=== PATIENT | female | born 1990 | race Caucasian/White ===

== ENCOUNTER 2020-08-23 09:45 | Inpatient (IN) | payer OTHER, SELFPAY ==
[2014-09-14 02:01] VITALS: BMI 23.1
[2020-08-23] VITALS (37 sets, daily range): BP systolic 111–144; BP diastolic 54–87; PULSE 81–123; TEMP 36.2–37.2; O2SAT 85–100; BMI 39.1
[2020-08-23 10:52] LABS: Absolute Lymphocyte Count 1.62 X10^3/uL (0.83-4.51); Absolute Neutrophil Count 6.4 X10^3/uL (2.0-7.7); Basophil# 0.04 X10^3/uL; Basophil% 0.5 % (0-1); Eosinophil# 0.06 X10^3/uL; Eosinophils% 0.7 % (0-5); Hemoglobin 11.9 g/dL (12.0-15.0); Lymphocyte # 1.62 X10^3/ul (4.0); Lymphocyte % 19.1 % (19-41); Mean Corpuscular Hgb 33.1 pg (27.0-32.0); Mean Corpuscular Volume 97.2 fL (81-99); Mean Platelet Vol. 9.7 fl (6.2-12.0); Monocyte# 0.34 X10^3/uL; NRBC Flagged by Analyzer 0 % (0-5); Neutrophil # 6.41 X10^3/uL (2.7-7.7); Neutrophil % 75.3 % (47-70); Platelet Count 271 K/mm3 (150-450); RBC Distribution Width CV 13.2 % (11.6-14.6); RBC Distribution Width SD 46.5 fl (35.1-43.9); White Blood Count 8.5 K/mm3 (4.4-11.0)
[2020-08-23] MEDS: miSOPROStol 25 MCG TABLET PO (11:04)
[2020-08-23] MEDS: Mag Hydrox/Al Hydrox/Simeth 30 ML UDC PO ×3 (11:04→20:15)
[2020-08-23 11:05] LABS: Uric Acid 5.7 mg/dL (2.6-6.0)
[2020-08-23 11:06] LABS: Protein, Urine (Random) 15.5 mg/dL (<11.9); Protein:Creat Ratio 1174 mg/g CRE (0-200)
[2020-08-23 11:14] LABS: ALB/GLOB Ratio 0.6 RATIO (0.9-2.4); AST(SGOT) 15 U/L (15-37); Alanine Aminotransfer ALT/SGPT 16 U/L (13-56); Albumin, Serum 2.7 g/dL (3.2-5.0); Alkaline Phosphatase 167 U/L (45-117); Anion Gap 8 (5-15); BUN 9 mg/dL (7-18); BUN/Creat Ratio 11.4 RATIO (10-20); Calcium,Total 9.6 mg/dL (8.5-10.1); Chloride 108 mmol/L (98-107); Creatinine, Serum 0.79 mg/dL (0.55-1.02); EST Glomerular Filtration Rate 91 mL/min (>60); Est Glom Filt Rate - Afr Amer 110 mL/min (>60); Estimated Creatinine Clearance 109.81 ml/min; Globulin 4.2 g/dL (2.2-4.2); Glucose 107 mg/dL (74-106); Potassium 3.8 mmol/L (3.5-5.1); Protein, Total 6.9 g/dL (6.4-8.2); Sodium Level 138 mmol/L (136-145)
--- NOTE | 2020-08-23 12:38 | PCM.HP.OB ---
- Problem List (1) Obesity (BMI 30-39.9) Status: Acute (2) Excessive weight gain affecting Status: Acute (3) Pre-eclampsia Status: Acute (4) Nulliparity Status: Acute History Date of Admission: 08/23/20 Final BISHNU: 08/29/20 Final BISHNU Source: US <20 weeks Gestational age: 39 Weeks and 1 Days History of this : This is a 30 year-old, G [1], P [0], at 39 weeks 1 day gestational age by ultrasound. Patient presented to office today with complaint of mildly elevated blood pressures in the 130s over 80s last evening. Had a headache yesterday but improved today. Upon arrival to office for visit blood pressure found to be 140s over 90s and decision made for induction of labor due to gestational hypertension. course complicated by obesity, excessive weight gain 51 pounds total with normal growth ultrasound in the 36th percentile and ELMER 9 normal. Allergies No Known Allergies Allergy (Verified 09/14/14 02:03) Home Medications: Home Medications Famotidine [Pepcid] 20 mg PO DAILY 08/23/20 Vits [Prenatabs FA] 1 tab PO DAILY 08/23/20 Smoking Status: Former smoker Alcohol: None Number of Fetus(es): 1 NST - FHR Rate Baby A Baseline: 135 Variability:: Moderate Accelerations:: 15 x 15 Decelerations:: Variable FHR Category:: Category II Uterine Activity:: Irregular History Past Pregnancies: Past Pregnancies Delivery Date Name GA/ Weeks Outcome Route Wt Sex Labor Length Anesthesia Delivery Location Provider FOB Labs: Mom's Microbiology 08/23/20 10:30 Mucosa - Nasopharyngeal SARS-CoV-2 Antigen (Rapid) - Final Mom's Problem List Problem Status Onset Code Obesity (BMI 30-39.9) Acute E66.9 Excessive weight gain affecting Acute O26.00 Pre-eclampsia Acute O14.90 Nulliparity Acute Mom's Labs & Results 08/23/20 08/23/20 08/23/20 10:00 10:30 10:30 WBC 8.5 RBC 3.60 L Hgb 11.9 L Hct 35.0 L MCV 97.2 MCH 33.1 H MCHC 34.0 RDW Std Deviation 46.5 H RDW Coeff of Jannet 13.2 Plt Count 271 MPV 9.7 Immature Gran % (Auto) 0.400 Neut % (Auto) 75.3 H Lymph % (Auto) 19.1 Sunflower % (Auto) 4.0 Eos % (Auto) 0.7 Baso % (Auto) 0.5 Absolute Neuts (auto) 6.4 Absolute Lymphs (auto) 1.62 Nucleated RBC % 0 Sodium Potassium Chloride Carbon Dioxide Anion Gap BUN Creatinine Estim Creat Clear Calc Est GFR (MDRD) Af Amer Est GFR (MDRD) Non-Af BUN/Creatinine Ratio Glucose Uric Acid Calcium Total Bilirubin AST ALT Alkaline Phosphatase Total Protein Albumin Globulin Albumin/Globulin Ratio U Random Total Protein 15.5 H Urine Creatinine 13.20 Protein/Creatinin Ratio 1174 H Blood Type AB POSITIVE Antibody Screen NEGATIVE 08/23/20 08/23/20 10:30 10:30 WBC RBC Hgb Hct MCV MCH MCHC RDW Std Deviation RDW Coeff of Jannet Plt Count MPV Immature Gran % (Auto) Neut % (Auto) Lymph % (Auto) Sunflower % (Auto) Eos % (Auto) Baso % (Auto) Absolute Neuts (auto) Absolute Lymphs (auto) Nucleated RBC % Sodium 138 Potassium 3.8 Chloride 108 H Carbon Dioxide 22.0 Anion Gap 8 BUN 9 Creatinine Cancelled 0.79 Estim Creat Clear Calc 109.81 Est GFR (MDRD) Af Amer Cancelled 110 Est GFR (MDRD) Non-Af Cancelled 91 BUN/Creatinine Ratio 11.4 Glucose 107 H Uric Acid 5.7 Calcium 9.6 Total Bilirubin 0.20 AST Cancelled 15 ALT Cancelled 16 Alkaline Phosphatase 167 H Total Protein 6.9 Albumin 2.7 L Globulin 4.2 Albumin/Globulin Ratio 0.6 L U Random Total Protein Urine Creatinine Protein/Creatinin Ratio Blood Type Antibody Screen Course Did the patient receive Yes care? Labs Blood Type: AB RH: POSITIVE RPR/VDRL/Syphilis Nonreactive Rubella status Immune HbSAg Negative Date Done: 01/24/20 Chlamydia Negative Gonorrhea Negative HIV/AIDS Non-Reactive Group B Strep: Negative Current Obstetrical History Gestational Diabetes No Incompetent Cervix No Infertility No IUGR No Macrosomia No Hypertension/Pre-eclampsia No Placenta Previa/Abruption No PTL/PROM No Uterine anomaly No Oligohydramnios No Polyhydramnios No Multiple gestation No Past Medical History Asthma No Diabetes No Hypertension No Heart disease No Mitral valve prolapse No Neurologic/Seizure disorder/ No Migraines Kidney disease No Liver disease No Varicosities No Clotting disorders/Hx of DVT No Thyroid Dysfunction No Other medical diseases No Psychiatric disorders No Major trauma No Abnormal PAP smear No Sleep apnea No Mammogram in the last 2 years No Social History Marital Status: Alleged father olivia verdin Hx Smoking No Smoking Status Former smoker Expected Infant Delivery Method: Spontaneous Vaginal Review of Systems Constitutional: Denies: Chills, Fever, Weight Change HEENT: Denies: Head Aches, Sinus Congestion, Sinus Drainage Cardiovascular: Denies: Chest Pain, Palpitations Respiratory: Denies: Cough, Shortness of breath at rest, Sputum production Gastrointestinal: Denies: Abdominal Pain, Nausea, Vomiting Genitourinary: Denies: Dysuria Musculoskeletal: Denies: Joint Pain, Joint Tenderness Skin: Denies: Rash, Wounds Neurological: Denies: Numbness, Tingling, Focal weakness Psychiatric: Denies: Anxiety, Depression, Homicidal Ideations, Suicidal Ideations Hematologic/ Lymphatic: Denies: Easy Bruising, Easy Bleeding Physical Exam Vitals: Vital Signs Temp Pulse BP Pulse Ox 98.6 F 96 139/87 H 99 08/23/20 10:20 08/23/20 11:38 08/23/20 11:38 08/23/20 10:20 General: Alert, Oriented x3, Cooperative HEENT: Atraumatic, Normocephalic Cardiovascular: Regular rate, Regular Rhythm Lungs: Clear to auscultation, Normal air movement, No rhonchi, No wheeze Abdomen: Bowel Sounds Present, Gravid - Right upper quadrant abdominal tenderness Neurological: Deep Tendon Reflexes 2+/4 and Symmetrical. Negative for: Clonus TUTORING CLINICIAN: Normal external genitalia Estimated gestational size: Appropriate for gestational size Presentation: Cephalic Cervix Dilation (cm): 2 - Smith catheter placed with stylette, no complications. SROM for clear fluid Station: -1 Effacement (%): 70 Assessment/Plan All Active Problems Obesity (BMI 30-39.9) (Acute) Excessive weight gain affecting (Acute) Pre-eclampsia (Acute) Nulliparity (Acute) This is a 30 year-old, G [1], P [0], at 39 weeks gestational age. Assessment: Induction of labor due to preeclampsia Category 2 heart tracing Obesity in with excessive weight gain Plan: 1. Admit to labor and delivery. 2. Routine admission labs, CMP, uric acid, urine PC ratio. 3. Urine PC ratio elevated to 1174, BP remains mild range 4. Planning epidural for pain management 5. P.o. Cytotec 25 mcg every 4 hours with Smith bulb for cervical ripening. We will then start Pitocin if needed. 6. Continuous electronic monitoring 7. Dr. Maurer collaborative physician updated on patient's status.
[2020-08-23] MEDS: 0.9% Normal Saline Single 100 ML IV.SOLN. INTRA-UTER (12:48)
[2020-08-23] MEDS: Lactated Ringers 1,000 ML 50 ML IV (15:56)
[2020-08-23] MEDS: 0.9% Saline Lock 10 ML Syringe IV (16:26)
[2020-08-23] MEDS: Oxytocin 30 units/NS 500 ml 30 UNITS/500 ML IV.SOLN IV (16:29)
[2020-08-23] MEDS: Lactated Ringers 500 ML 999 ML IV ×2 (17:35→22:08)
--- NOTE | 2020-08-23 18:17 | PN.OBGYN_ITS ---
Patient Problems: Active and Suspected Problems Obesity (BMI 30-39.9) (Acute) Excessive weight gain affecting (Acute) Pre-eclampsia (Acute) Nulliparity (Acute) Subjective: Resting in bed, coping with contractions. at bedside. Rating pain 7/10 and requesting epidural. Smith bulb fell out around 1430. Objective: FHT 135, moderate variability, accels, no decels, category 1 TOCO: every 2-3 minutes, mild Cervix 5cm/75%/-1 Pitocin at 4 mu's - Physical Exam Vitals/I&O's: Vital Signs Temp Pulse BP Pulse Ox 98.3 F 96 125/65 H 100 08/23/20 17:37 08/23/20 17:37 08/23/20 17:37 08/23/20 17:36 Weight: 265 lb Body Mass Index (BMI) 39.1 Intake and Output for Last 24 Hours 08/21/20 08/22/20 08/23/20 23:59 23:59 23:59 Intake Total 583.53 / 583.53 Balance 583.53 / 583.53 Microbiology Past 72 Hours 08/23/20 10:30 Mucosa - Nasopharyngeal SARS-CoV-2 Antigen (Rapid) - Final Laboratory Results 08/23/20 10:00: U Random Total Protein 15.5 H, Urine Creatinine 13.20, Protein/Creatinin Ratio 1174 H 08/23/20 10:30: WBC 8.5, RBC 3.60 L, Hgb 11.9 L, Hct 35.0 L, MCV 97.2, MCH 33.1 H, MCHC 34.0, RDW Std Deviation 46.5 H, RDW Coeff of Jannet 13.2, Plt Count 271, MPV 9.7, Immature Gran % (Auto) 0.400, Neut % (Auto) 75.3 H, Lymph % (Auto) 19.1, [place] % (Auto) 4.0, Eos % (Auto) 0.7, Baso % (Auto) 0.5, Absolute Neuts (auto) 6.4, Absolute Lymphs (auto) 1.62, Nucleated RBC % 0 08/23/20 10:30: Blood Type AB POSITIVE, Antibody Screen NEGATIVE 08/23/20 10:30: Creatinine Cancelled, Est GFR (MDRD) Af Amer Cancelled, Est GFR (MDRD) Non-Af Cancelled, Uric Acid 5.7, AST Cancelled, ALT Cancelled 08/23/20 10:30: Sodium 138, Potassium 3.8, Chloride 108 H, Carbon Dioxide 22.0, Anion Gap 8, BUN 9, Creatinine 0.79, Estim Creat Clear Calc 109.81, Est GFR (MDRD) Af Amer 110, Est GFR (MDRD) Non-Af 91, BUN/Creatinine Ratio 11.4, Glucose 107 H, Calcium 9.6, Total Bilirubin 0.20, AST 15, ALT 16, Alkaline Phosphatase 167 H, Total Protein 6.9, Albumin 2.7 L, Globulin 4.2, Albumin/Globulin Ratio 0.6 L Current Medications Acetaminophen (Acetaminophen 500 Mg Tablet) 500 - 1,000 mg PO Q6H PRN PRN PRN Reason: Pain Score 1-3 Al Hydroxide/Mg Hydroxide (Mag Hydrox/Al Hydrox/Simeth 30 Ml Udc) 15 - 30 ml PO Q4H PRN PRN PRN Reason: INDIGESTION Last Admin: 08/23/20 15:56 Dose: 30 ml Documented by: Citric Acid/Sodium Citrate (Sodium Citrate/Citric Acid 30 Ml Udc) 30 ml PO X1 PRN PRN Reason: Section Fentanyl Citrate (Fentanyl 100 Mcg/2 Ml Ampul) 25 - 50 mcg IV Q2H PRN PRN PRN Reason: Pain Score 4-10 Lactated Ringer's () 500 mls @ 999 mls/hr IV .Q31M PRN PRN Reason: Epidural Last Infusion: 08/23/20 18:10 Dose: Infused Documented by: Lactated Ringer's () 500 mls @ 999 mls/hr IV .Q31M PRN PRN Reason: Corrective Measures Lactated Ringer's () 1,000 mls @ 50 mls/hr IV .Q20H JUAN Last Infusion: 08/23/20 18:05 Dose: 200 mls/hr Documented by: Oxytocin/Sodium Chloride () 30 units in 500 mls @ 2 mls/hr IV .Q250H JUAN Last Infusion: 08/23/20 17:00 Dose: 4 mls/hr Documented by: Ondansetron HCl (Ondansetron 4 Mg/2 Ml Vial) 4 mg IV Q4H PRN PRN PRN Reason: NAUSEA Prochlorperazine Edisylate (Prochlorperazine 10 Mg/2 Ml Vial) 10 mg IV Q6H PRN PRN PRN Reason: NAUSEA Sodium Chloride (0.9% Saline Lock 10 Ml Syringe) 10 - 40 ml IV X1 PRN PRN Reason: SALINE FLUSH Last Admin: 08/23/20 16:26 Dose: 10 ml Documented by: Medical Necessity - Tobacco Use Smoking Status: Former smoker Assessment/Plan All Active Problems Obesity (BMI 30-39.9) (Acute) Excessive weight gain affecting (Acute) Pre-eclampsia (Acute) Nulliparity (Acute) A:Induction of Labor, progressing Category 1 FHT P: 1.BP remain mild range 2.Epidural for pain management 3.Continuous EFM, may place FSE and IUPC once epidural placed if unable to monitor FHR and contractions. 4. notified of patient status
[2020-08-23] MEDS: fentaNYL-bupivacaine (epidural) 100 ML BAG EPIDURAL ×2 (19:15→23:45)
[2020-08-23] MEDS: Lactated Ringers 1,000 ML 200 ML IV (22:08)
[2020-08-24] VITALS (19 sets, daily range): BP systolic 116–144; BP diastolic 62–87; PULSE 85–114; RESP 16–18; TEMP 35.9–37.4; O2SAT 92–99
[2020-08-24] MEDS: Mag Hydrox/Al Hydrox/Simeth 30 ML UDC PO (00:02)
[2020-08-24] MEDS: Amnioinfusion- 0.9% NS 1,000 ML IV.SOLN. 300 ML INTRA-UTER (01:00)
[2020-08-24] MEDS: Oxytocin 30 units/NS 500 ml 30 UNITS/500 ML IV.SOLN 334 UNITS IV (03:24)
--- NOTE | 2020-08-24 04:19 | PCM.OPRPT ---
Problem List (1) Obesity (BMI 30-39.9) Status: Acute (2) Excessive weight gain affecting Status: Acute (3) Pre-eclampsia Status: Acute (4) Nulliparity Status: Acute (5) Vaginal delivery Status: Acute (6) First degree perineal laceration Status: Acute (7) Perineal laceration of labia Status: Acute Vaginal Delivery Maternal Presentation: Medically Indicated Induction - Preeclampsia Method of Induction: Pitocin, Smith Bulb, Cytotec Amniotic Membrane Rupture Type: Spontaneous Amniotic Fluid Description: Clear Final BISHNU: 08/29/20 Final BISHNU Source: US <20 weeks Gestational age: 39 Weeks and 2 Days Date of Procedure: 08/24/20 Pre-Operative Diagnosis: Induction of Labor Post-Operative Diagnosis: Vaginal Delivery Surgery/ Procedure Performed: Spontaneous Vaginal Delivery Type of Anesthesia: Epidural Description of Procedure: Progressed to complete and epidural effective. of viable male infant at 0322 over first degree perineal laceration. APGARS 8,9. head delivered with body forth coming. Placed on Maternal abdomen with strong cry. Mouth and nares suctioned for secretions. Pitocin started for active 3rd stage management. Placenta delivered with maternal effort, intact, 3 vessel cord. Perineum inspected and revealed first degree perineal laceration repaired with 3.0 vicryl rapide and bilateal labial lacerations repaired with 3.0 vicryl rapide under epidural analgesia. Fundus firm, vaginal sweep completed, EBL 400ml. Sponge and instrument count correct and completed by me. initiated. Mom and baby stable. Family bonding well. Presentation: Vertex Placental Delivery Description: Spontaneous Placenta Disposition: [facility] Cord Vessel Description: 3 Vessels Cord Entanglement: None Estimated Blood Loss: 400 ml A gender: Male (1 minute): 8 (5 minute): 9 Episiotomy Description: None Laceration: Perineal Extension/lac, 1st degree Medications given after delivery: IV Pitocin Complications: None
[2020-08-24] MEDS: 0.9% Saline Lock 10 ML Syringe IV (06:08)
[2020-08-24] MEDS: Ibuprofen 600 MG Tablet PO ×2 (13:58→20:08)
[2020-08-24] MEDS: Dibucaine 30 GM Tube 1 APPLIC TOPICAL (20:08)
--- NOTE | 2020-08-24 21:47 | NURSING ---
Circumcision care education provided by this RN. Discussed signs and symptoms to look for, circumcision care, and showed pt. page about circ in [employer] book. Denies questions or concerns at this time. This RN encourage parents to call out for a nurse for first diaper change if they want assistance with the first one.
[2020-08-25 00:45] VITALS: BP 125/75; PULSE 85; RESP 16; TEMP 37.3
[2020-08-25 04:50] VITALS: BP 118/77; PULSE 76; RESP 16; TEMP 36.4
[2020-08-25] MEDS: Ibuprofen 600 MG Tablet PO (05:02)
[2020-08-25 06:05] LABS: ALB/GLOB Ratio 0.6 RATIO (0.9-2.4); AST(SGOT) 17 U/L (15-37); Alanine Aminotransfer ALT/SGPT 15 U/L (13-56); Albumin, Serum 2.4 g/dL (3.2-5.0); Alkaline Phosphatase 130 U/L (45-117); Anion Gap 6 (5-15); BUN 13 mg/dL (7-18); Calcium,Total 7.9 mg/dL (8.5-10.1); Chloride 111 mmol/L (98-107); Creatinine, Serum 0.68 mg/dL (0.55-1.02); EST Glomerular Filtration Rate 108 mL/min (>60); Est Glom Filt Rate - Afr Amer 131 mL/min (>60); Estimated Creatinine Clearance 127.57 ml/min; Globulin 3.8 g/dL (2.2-4.2); Glucose 73 mg/dL (74-106); Protein, Total 6.2 g/dL (6.4-8.2); Sodium Level 139 mmol/L (136-145)
--- NOTE | 2020-08-25 09:16 | PCM.PN.OB ---
Patient Problems: Active and Suspected Problems Obesity (BMI 30-39.9) (Acute) Excessive weight gain affecting (Acute) Pre-eclampsia (Acute) Nulliparity (Acute) Vaginal delivery (Acute) First degree perineal laceration (Acute) Perineal laceration of labia (Acute) Subjective: pt seen at bedside, doing well. pt reports good pain control. lochia mild. breast feeding well. pt denies CORREIA, Visual changes or RUQ pain. - Physical Exam Vitals/I&O's: Vital Signs Temp Pulse Resp BP Pulse Ox 97.6 F L 76 16 118/77 99 08/25/20 04:50 08/25/20 04:50 08/25/20 04:50 08/25/20 04:50 08/24/20 16:37 Oxygen Delivery Method Room Air Weight: 120.202 kg Body Mass Index (BMI) 39.1 Intake and Output for Last 24 Hours 08/23/20 08/24/20 08/25/20 23:59 23:59 23:59 Intake Total 1933.03 / 1933.03 2535.0 / 2535.0 Output Total 800 / 800 Balance 1933.03 / 1933.03 1735.0 / 1735.0 General: Alert, Oriented x3 Abdomen: Soft, Non Tender, Gravid, - - fundus firm Extremities: No Calf Tenderness Microbiology Past 72 Hours 08/23/20 10:30 Mucosa - Nasopharyngeal SARS-CoV-2 Antigen (Rapid) - Final Laboratory Results 08/25/20 04:55: Sodium 139, Potassium 4.0, Chloride 111 H, Carbon Dioxide 22.0, Anion Gap 6, BUN 13, Creatinine 0.68, Estim Creat Clear Calc 127.57, Est GFR (MDRD) Af Amer 131, Est GFR (MDRD) Non-Af 108, BUN/Creatinine Ratio 19.0, Glucose 73 L, Calcium 7.9 L, Total Bilirubin 0.20, AST 17, ALT 15, Alkaline Phosphatase 130 H, Total Protein 6.2 L, Albumin 2.4 L, Globulin 3.8, Albumin/Globulin Ratio 0.6 L Current Medications Acetaminophen (Acetaminophen 500 Mg Tablet) 1,000 mg PO Q8H PRN PRN PRN Reason: Pain Score 1-3 Bisacodyl (Bisacodyl 10 Mg Suppository) 10 mg RC UD PRN PRN Reason: If no BM Dibucaine (Dibucaine 30 Gm Tube) 1 applic TOPICAL TID PRN PRN; Protocol PRN Reason: Discomfort Last Admin: 08/24/20 20:08 Dose: 1 applicatio Documented by: Hydrocortisone (Hydrocortisone 2.5% Crm) 1 applic TOPICAL TID PRN PRN; Protocol PRN Reason: Discomfort Ibuprofen (Ibuprofen 600 Mg Tablet) 600 mg PO Q6H PRN PRN PRN Reason: Pain Score 1-3 Last Admin: 08/25/20 05:02 Dose: 600 mg Documented by: Methylergonovine Maleate (Methylergonovine 0.2 Mg/Ml Ampul) 0.2 mg IM X1 PRN PRN Reason: Excess bleeding/uterine atony Ondansetron HCl (Ondansetron 4 Mg/2 Ml Vial) 4 mg IV Q4H PRN PRN PRN Reason: Nausea Senna/Docusate Sodium (Senna/Docusate Sodium 1 Tablet) 1 - 2 tablet PO DAILY PRN PRN PRN Reason: Constipation Simethicone (Simethicone 80 Mg Tablet) 80 mg PO PCHS PRN PRN Reason: Indigestion/Stomach pain Last Admin: 08/24/20 20:07 Dose: 80 mg Documented by: Sodium Chloride (0.9% Saline Lock 10 Ml Syringe) 5 - 15 ml IV UD PRN PRN Reason: SALINE FLUSH Last Admin: 08/24/20 06:08 Dose: 10 ml Documented by: Medical Necessity - Tobacco Use Smoking Status: Former smoker Assessment/Plan All Active Problems Obesity (BMI 30-39.9) (Acute) Excessive weight gain affecting (Acute) Pre-eclampsia (Acute) Nulliparity (Acute) Vaginal delivery (Acute) First degree perineal laceration (Acute) Perineal laceration of labia (Acute) PPD#1, doing well Preeclampisa - BPs stable asymptomatic pain mgmt dc home
--- NOTE | 2020-08-25 09:19 | DCINST_ITS ---
Discharge Diet: No Restrictions Discharge Activity: Return to Normal Activity, May not drive while taking narcotic pain medications., May Shower May resume sexual activity in: 4-6 weeks Additional Activity Instructions:: Nothing in the vagina for 4-6 weeks. You may return to work/school in 6 weeks. Call your doctor if your incision/area has: Continuous Slow Oozing, Sudden Increased Bleeding, Increased Pain/ Swelling, Increased Redness, Foul Smelling Discharge Additional Instructions: If you experience any of the following, contact your healthcare provider. * Bleeding that soaks a pad every hour for 2 hours * Fever 100.4 or higher * Unrelieved incision or abdominal pain * Swelling, redness, discharge or bleeding from your incision or episiotomy site * Your incision begins to separate * Problems urinating (including inability to urinate or burning while urinating). * Visual changes * Severe headache * Flu-like symptoms * Pain or redness in one of both of your breasts * Pain, warmth, tenderness or swelling in your legs, especially the calf area * Frequent nausea and vomiting * Symptoms of depression or anxiety If you experience any of the following, call 911 or go to the nearest Emergency Room. * Chest pain * Problems breathing * Seizure activity * Partial or complete paralysis of a body part, slurred speech, weakness or drooping of the face, or a sudden inability to walk or hold your balance Allergies/Adverse Reactions: Allergies No Known Allergies Allergy (Verified 09/14/14 02:03) Medications to take at Discharge Vits [Prenatabs FA ] 1 tab PO DAILY 08/23/20 Ibuprofen [Motrin] 600 mg PO Q6H PRN PRN #30 tab 08/25/20 The following prescriptions were given: Ibuprofen [Motrin] 600 mg PO Q6H PRN PRN #30 tab PRN Reason: Pain Score 1-3 Transmission Status: Pending to [id number] Please Follow Up With: Zakiya Schulte CNM When: Call to make an appointment with your doctor in 1-2 weeks then at 6 weeks. . Test Results: Test results from this visit will be discussed in further detail at your follow- up appointment, if applicable.
[2020-08-25 09:20] VITALS: BP 119/77; PULSE 81; RESP 16; TEMP 36.6; O2SAT 98
[2020-08-25 09:27] VITALS: BP 119/77; PULSE 105; RESP 16; TEMP 36.6; O2SAT 98
[2020-08-25] MEDS: Acetaminophen 500 MG Tablet 1000 MG PO (09:39)
== END 2020-08-25 11:55 | disposition home or self-care (01) | DRG 807 ==
PROVIDERS: Admitting Provider Advanced Practice Midwife; Visit Provider Advanced Practice Midwife
DX: O14.94 Unspecified pre-eclampsia, complicating childbirth (principal); O13.4 Gestational [pregnancy-induced] hypertension without significant proteinuria, complicating childbirth; O70.0 First degree perineal laceration during delivery; O99.214 Obesity complicating childbirth; E66.9 Obesity, unspecified; Z20.822 Contact with and (suspected) exposure to COVID-19; Z87.891 Personal history of nicotine dependence; Z3A.39 39 weeks gestation of pregnancy; Z37.0 Single live birth
CPT/HCPCS: 59025; 59050; 80053; 82570; 84156; 84550; 85025; 86850; 86900; 86901; 87426; 99218; J7030; J7120; A4216; G0378

== ENCOUNTER 2020-10-16 15:54 | Outpatient (RCR) | payer OTHER, SELFPAY ==
[2020-08-23 10:18] VITALS: BMI 39.1
== END 2020-12-17 23:59 ==
LOC: IMMUN 15:54
PROVIDERS: PCP Advanced Practice Midwife; Visit Provider Family Medicine
DX: Z23 Encounter for immunization (principal)
CPT/HCPCS: 0001A; 0002A; 91300

== ENCOUNTER 2022-09-23 07:00 | Inpatient (IN) | payer OTHER, SELFPAY ==
[2022-09-23] VITALS (43 sets, daily range): BP systolic 99–137; BP diastolic 51–75; PULSE 76–137; TEMP 36.2–36.9; O2SAT 78–100; BMI 36.9
[2022-09-23] MEDS: Lactated Ringers 1,000 ML 50 ML IV (07:35)
[2022-09-23] MEDS: 0.9% Normal Saline Single 100 ML IV.SOLN. INTRA-UTER (07:52)
[2022-09-23] MEDS: Oxytocin 15 Units/NS 250ml 15 UNITS/250 ML IV.SOLN 2 UNITS IV (07:53)
--- NOTE | 2022-09-23 08:00 | PCM.HP.OB ---
HPI - General General Date of Admission: 09/23/22 HPI Narrative PK VIRK, is a 32 F at 37 weeks who presents for induction of labor due to preeclampsia. PFSH PFSH Medical History (Updated 09/23/22 @ 16:56 by Zakiya Schulte CNM) Pre-eclampsia Home Medications vits,calcium no.78-iron fumarate-folic acid 29 mg-1 mg tablet 1 tab PO DAILY 08/23/20 [History Last Taken 08/22/20 10:00] acetaminophen 325 mg capsule (Tylenol) 650 mg PO Q6H PRN Pain 09/23/22 [History Last Taken Unknown] famotidine 20 mg tablet (Pepcid) 20 mg PO DAILY heartburn 09/23/22 [History Last Taken Unknown] Allergy/AdvReac Type Severity Reaction Status Date / Time No Known Allergies Allergy Verified 09/14/14 02:03 Surgical History (Updated 09/23/22 @ 08:07 by Stephanie Villanueva) History of surgery Social History Smoking Status: Never smoker History Elective abortions Hx Para 1 Spontaneous abortions Hx # Term Pregnancies Ectopic pregnancies Hx # Pregnancies Multiple births # of living children NST FHR Rate Baby A Baseline: 135 Variability:: Moderate Accelerations:: 15 x 15 Decelerations:: None FHR Category:: Category I Uterine Activity:: None ROS Constitutional Constitutional: Reports systems reviewed and no addt'l complaints, except as documented; Denies headache(s) Eyes Eyes: Denies acute decrease in peripheral vision, blurry vision or change in vision ENT HEENT: Reports systems reviewed and no addt'l complaints, except as documented Cardiovascular Cardiovascular: Denies chest pain or dizziness Respiratory/Chest Respiratory/Chest: Denies cough, dyspnea, dyspnea on exertion, shortness of breath at rest or shortness of breath with exertion Gastrointestinal Gastrointestinal: Denies abdominal pain, diarrhea, nausea or vomiting Genitourinary Genitourinary: Denies abdominal discomfort Musculoskeletal Musculoskeletal: Denies limited range of motion Integumentary Integumentary: Reports systems reviewed and no addt'l complaints, except as documented Neurologic Neurologic: Reports systems reviewed and no addt'l complaints, except as documented Psychiatric Psychiatric: Reports systems reviewed and no addt'l complaints, except as documented Endocrine Endocrinology: Reports systems reviewed and no addt'l complaints, except as documented Hematologic/Lymphatic Hematologic/Lymphatic: Reports systems reviewed and no addt'l complaints, except as documented Allergic/Immunologic Allergic/Immunologic: Reports systems reviewed and no addt'l complaints, except as documented Vital Signs Vital Signs Vital Signs: 09/23/22 07:45 09/23/22 07:45 09/23/22 07:45 Temperature Temperature Source Pulse Rate 100 Blood Pressure 137/70 H BP Systolic 137 BP Diastolic 70 Pulse Ox 98 09/23/22 07:45 09/23/22 07:45 Temperature 98.3 F Temperature Source Temporal Pulse Rate Blood Pressure BP Systolic BP Diastolic Pulse Ox Weight Weight: 265 lb Body Mass Index (BMI) 36.9 Physical Exam Const alert and oriented x3 General Appearance: cooperative Orientation / Consciousness: awake, oriented to person, oriented to place and oriented to time Exam Limitations: no limitations HEENT normocephalic Head and Scalp: normal to inspection, normocephalic and atraumatic Face and Sinus: normal facial exam Eyes General Eye: normal appearance of both eyes Neck full ROM Chest Chest: symmetrical chest wall rise Resp normal respiratory effort and normal air movement Auscultation: clear to auscultation bilaterally Cardio regular rate, regular rhythm, S1 normal heart sound, S2 normal heart sound, no murmurs, no rub, no gallops and no clicks GI normal to inspection, nondistended, normoactive bowel sounds and non-tender appearance of the vagina normal Narrative: Smith instilled over stylus into cervical os. Balloon inflated with 30ml NS. Patient tolerated well. Bladder / Kidney Exam: no CVA tenderness Manual OB Exam: estimated gestational size, presentation cephalic, dilated 1.5cm, effaced 50% and station -2 Back/Spine normal ROM Extremity normal to inspection and full ROM Skin no rashes or lesions noted Neuro oriented x3, CN's II-XII intact bilaterally and moves all extremities Sensorium / Orientation: awake, alert and oriented to person Motor Exam: clonus absent Deep Tendon Reflexes: Rt Patellar (L4): 2+ and Lt Patellar (L4): 2+ Labs Labs Labs: Blood Type AB POSITIVE Antibody Screen NEGATIVE Hct 33.4 % (37-47) L Hgb 11.0 g/dL (12.0-15.0) L Syphilis Total Ab Non-reactive Rhogam given: No RPR negative Rubella immune HBsAG negative Hep C negative HIV negative AB positive, antibody negative GC/CT negative GBS negative Assessment & Plan (1) Obesity (BMI 30-39.9): (2) Pre-eclampsia: (3) Encounter for induction of labor: PLAN: Plan 1) Admit to labor and delivery 2) Routine labs 3) Preeclampsia labs 4) Smith with pitocin for IOL 5) Epidural for pain management 6) Continuous EFM 7) collaborative physician and notified of patient status
[2022-09-23 08:15] LABS: Absolute Neutrophil Count 5.3 X10^3/uL (2.0-7.7); Basophil# 0.04 X10^3/uL; Basophil% 0.5 % (0-1); Eosinophil# 0.11 X10^3/uL; Eosinophils% 1.3 % (0-5); Hematocrit 33.4 % (37-47); Lymphocyte % 29.2 % (19-41); Mean Corp Hgb Conc 32.9 g/dL (32-36); Mean Corpuscular Hgb 33.5 pg (27.0-32.0); Mean Corpuscular Volume 101.8 fL (81-99); Mean Platelet Vol. 9.2 fl (6.2-12.0); Monocyte# 0.54 X10^3/uL; Monocyte% 6.3 % (0-10); NRBC Flagged by Analyzer 0 % (0-5); Neutrophil # 5.33 X10^3/uL (2.7-7.7); Neutrophil % 62.1 % (47-70); Platelet Count 317 K/mm3 (150-450); RBC Distribution Width CV 13.6 % (11.6-14.6); RBC Distribution Width SD 50.5 fl (35.1-43.9); Red Blood Count 3.28 M/mm3 (4.2-5.4); White Blood Count 8.6 K/mm3 (4.4-11.0)
[2022-09-23 08:54] LABS: AST(SGOT) 10 U/L (15-37); Alanine Aminotransfer ALT/SGPT 16 U/L (13-56); Creatinine, Serum 0.77 mg/dL (0.55-1.02); EST Glomerular Filtration Rate 93 mL/min (>60); Est Glom Filt Rate - Afr Amer 112 mL/min (>60); Estimated Creatinine Clearance 118.32 ml/min; Uric Acid 5.3 mg/dL (2.6-6.0)
[2022-09-23 08:58] LABS: Protein:Creat Ratio 103 mg/g CRE (0-200)
[2022-09-23 09:18] LABS: Syphilis Antibodies Non-reactive
--- NOTE | 2022-09-23 12:03 | OB.TRI.PN ---
Progress Notes Progress Note: Resting in bed, increased pain with contractions Laboratory Studies: Laboratory Tests 09/23/22 09/23/22 09/23/22 Range/Units 08:15 07:35 07:35 WBC (4.4-11.0) K/mm3 RBC (4.2-5.4) M/mm3 Hgb (12.0-15.0) g/dL Hct (37-47) % MCV (81-99) fL MCH (27.0-32.0) pg MCHC (32-36) g/dL RDW Std Deviation (35.1-43.9) fl RDW Coeff of Jannet (11.6-14.6) % Plt Count (150-450) K/mm3 MPV (6.2-12.0) fl Immature Gran % (Auto) (0.0-0.9) % Neut % (Auto) (47-70) % Lymph % (Auto) (19-41) % [place] % (Auto) (0-10) % Eos % (Auto) (0-5) % Baso % (Auto) (0-1) % Absolute Neuts (auto) (2.0-7.7) X10^3/uL Absolute Lymphs (auto) (0.83-4.51) X10^3/uL Nucleated RBC % (0-5) % Creatinine 0.77 (0.55-1.02) mg/dL Estim Creat Clear Calc 118.32 ml/min Est GFR (MDRD) Af Amer 112 (>60) mL/min Est GFR (MDRD) Non-Af 93 (>60) mL/min Uric Acid 5.3 (2.6-6.0) mg/dL AST 10 L (15-37) U/L ALT 16 (13-56) U/L U Random Total Protein 6.0 (<11.9) mg/dL Urine Creatinine 58.20 (NO RANGE EST.) mg/dL Protein/Creatinin Ratio 103 (0-200) mg/g CRE Syphilis Total Ab Non-reactive Blood Type Antibody Screen 09/23/22 09/23/22 Range/Units 07:35 07:35 WBC 8.6 (4.4-11.0) K/mm3 RBC 3.28 L (4.2-5.4) M/mm3 Hgb 11.0 L (12.0-15.0) g/dL Hct 33.4 L (37-47) % MCV 101.8 H (81-99) fL MCH 33.5 H (27.0-32.0) pg MCHC 32.9 (32-36) g/dL RDW Std Deviation 50.5 H (35.1-43.9) fl RDW Coeff of Jannet 13.6 (11.6-14.6) % Plt Count 317 (150-450) K/mm3 MPV 9.2 (6.2-12.0) fl Immature Gran % (Auto) 0.600 (0.0-0.9) % Neut % (Auto) 62.1 (47-70) % Lymph % (Auto) 29.2 (19-41) % [place] % (Auto) 6.3 (0-10) % Eos % (Auto) 1.3 (0-5) % Baso % (Auto) 0.5 (0-1) % Absolute Neuts (auto) 5.3 (2.0-7.7) X10^3/uL Absolute Lymphs (auto) 2.50 (0.83-4.51) X10^3/uL Nucleated RBC % 0 (0-5) % Creatinine (0.55-1.02) mg/dL Estim Creat Clear Calc ml/min Est GFR (MDRD) Af Amer (>60) mL/min Est GFR (MDRD) Non-Af (>60) mL/min Uric Acid (2.6-6.0) mg/dL AST (15-37) U/L ALT (13-56) U/L U Random Total Protein (<11.9) mg/dL Urine Creatinine (NO RANGE EST.) mg/dL Protein/Creatinin Ratio (0-200) mg/g CRE Syphilis Total Ab Blood Type AB POSITIVE Antibody Screen NEGATIVE AROM large amount, clear 5/70/-1 NST 135, minimal, no decels, Category 2 Assessment & Plan (1) Encounter for induction of labor: (2) Obesity (BMI 30-39.9): (3) Pre-eclampsia: PLAN: Plan 1) Progressing, patel out and AROM 2) Continuous EFM 3) Epidural requested 4) Continue active management
[2022-09-23] MEDS: LACTATED RINGERS 500 ML 999 ML IV ×2 (12:09→15:14)
[2022-09-23] MEDS: fentaNYL-bupivacaine (epidural) 100 ML BAG EPIDURAL ×2 (13:34→17:41)
[2022-09-23] MEDS: Lactated Ringers 1,000 ML 200 ML IV (15:48)
[2022-09-23] MEDS: Amnioinfusion- 0.9% NS 1,000 ML IV.SOLN. 1000 ML INTRA-UTER (16:17)
--- NOTE | 2022-09-23 18:30 | EX.PCM.OBRPT ---
Assessment & Plan (1) Pre-eclampsia: (2) Vaginal delivery: (3) First degree perineal laceration: Maternal Data Information BISHNU Calculator Estimated Delivery Date Method Current WG Current Estimate 10/14/22 Manual 37w 0d Vaginal Delivery Maternal Presentation Maternal Presentation: Medically Indicated Induction Maternal Presentation: Preeclampsia Type of Induction: Pitocin and [facility] Medical Reason for Induction: Preeclampsia, eclampsia Operative Information Date of Procedure: 09/23/22 Pre-Operative Diagnosis: Preeclampsia, Induction of Labor Post-Operative Diagnosis: , first degree perineal laceration Surgery / Procedure Performed: Spontaneous Vaginal Delivery Type of Anesthesia: Epidural Estimated Blood Loss: 400 ml Time of Delivery: 18:08 Findings Description of Procedure: Progressed to complete with urge to push. Epidural for pain management. of viable male infant over first degree perineal laceration. APGARS 8,9 respectively. head delivered with body immediately forthcoming. Placed on maternal abdomen, strong cry. Mouth and nares suctioned for secretions. Pitocin started for active 3rd stage management. Cord doubly clamped and cut by FOB after pulsations ceased, delayed cord clamping. Placenta delivered intact via davon, 3 vessel cord intact. Perineum inspected and revealed 1st degree perineal laceration. Repaired with 3.0 vicryl rapide and epidural analgesia. Fundus firm and hemostasis achieved. EBL 400 ml. Mom and baby stable, planning to breastfeed. Family bonding well. notified of delivery. Presentation: Vertex and ALEXIA Amniotic Membrane Rupture Type: Spontaneous Amniotic Fluid Description: Clear Placental Delivery Description: Spontaneous Placenta Disposition: [facility] Cord Vessel Description: 3 Vessels Cord Entanglement: None A Gender: Male (1 minute): 9 (5 minute): 9 Delayed Cord Clamping: Yes Post Vaginal Delivery Medications Given After Delivery: IV Pitocin Episiotomy Description: None Laceration: Perineal Extension/lac and 1st degree Complication Complications: None
[2022-09-23] MEDS: Oxytocin 15 Units/NS 250ml 15 UNITS/250 ML IV.SOLN 83 UNITS IV (18:43)
[2022-09-23] MEDS: Ibuprofen 600 MG Tablet PO (19:44)
[2022-09-23] MEDS: Acetaminophen 500 MG Tablet 1000 MG PO (20:44)
[2022-09-23] MEDS: 0.9% Saline Lock 10 ML Syringe IV (21:46)
[2022-09-24] VITALS (11 sets, daily range): BP systolic 118–131; BP diastolic 62–71; PULSE 88–106; RESP 14–16; TEMP 36.3–36.8; O2SAT 98
[2022-09-24] MEDS: Ibuprofen 600 MG Tablet PO ×2 (03:33→23:31)
[2022-09-24 06:19] LABS: Hematocrit 29.6 % (37-47); Hemoglobin 9.8 g/dL (12.0-15.0); Mean Corp Hgb Conc 33.1 g/dL (32-36); Mean Corpuscular Hgb 33.2 pg (27.0-32.0); Mean Corpuscular Volume 100.3 fL (81-99); Mean Platelet Vol. 8.9 fl (6.2-12.0); Platelet Count 250 K/mm3 (150-450); RBC Distribution Width CV 13.6 % (11.6-14.6); RBC Distribution Width SD 49.6 fl (35.1-43.9); Red Blood Count 2.95 M/mm3 (4.2-5.4)
--- NOTE | 2022-09-24 08:13 | PN_ITS ---
Subjective Subjective patient seen at bedside, doing well. Patient reports good pain control. lochia mild. denies CORREIA, visual changes. Objective Data Objective Data Vital Signs: Vital Signs Temp Pulse Resp BP Pulse Ox O2 Del Method 97.4 F L 94 16 118/71 98 Room Air 09/24/22 07:44 09/24/22 07:47 09/24/22 07:44 09/24/22 07:47 09/24/22 07:44 09/24/22 07:44 Oxygen Delivery Method Room Air Weight: 120.202 kg Body Mass Index (BMI) 36.9 Intake & Output: Intake and Output for Last 24 Hours 09/22/22 09/23/22 09/24/22 23:59 23:59 23:59 Intake Total 3063.89 / 3063.89 Output Total 1300 / 1300 300 / 300 Balance 1763.89 / 1763.89 -300 / -300 Lab / Micro Data Result Diagrams: 09/24/22 06:10 09/23/22 07:35 Labs: Laboratory Results - last 24 hr 09/23/22 07:35: WBC 8.6, RBC 3.28 L, Hgb 11.0 L, Hct 33.4 L, MCV 101.8 H, MCH 33.5 H, MCHC 32.9, RDW Std Deviation 50.5 H, RDW Coeff of Jannet 13.6, Plt Count 317, MPV 9.2, Immature Gran % (Auto) 0.600, Neut % (Auto) 62.1, Lymph % (Auto) 29.2, [place] % (Auto) 6.3, Eos % (Auto) 1.3, Baso % (Auto) 0.5, Absolute Neuts (auto) 5.3, Absolute Lymphs (auto) 2.50, Nucleated RBC % 0 09/23/22 07:35: Blood Type AB POSITIVE, Antibody Screen NEGATIVE 09/23/22 07:35: Syphilis Total Ab Non-reactive 09/23/22 07:35: Creatinine 0.77, Estim Creat Clear Calc 118.32, Est GFR (MDRD) Af Amer 112, Est GFR (MDRD) Non-Af 93, Uric Acid 5.3, AST 10 L, ALT 16 09/23/22 08:15: U Random Total Protein 6.0, Urine Creatinine 58.20, Protein/Creatinin Ratio 103 09/24/22 06:10: WBC 12.0 H, RBC 2.95 L, Hgb 9.8 L, Hct 29.6 L, MCV 100.3 H, MCH 33.2 H, MCHC 33.1, RDW Std Deviation 49.6 H, RDW Coeff of Jannet 13.6, Plt Count 250, MPV 8.9 Physical Exam Const alert and oriented x3 General Appearance: cooperative HEENT normocephalic Neck General: normal visual inspection GI soft to palpation and non-distended GI Narrative: Fundus firm Extremity normal to inspection and no calf tenderness Skin no rashes or lesions noted Neuro oriented x3 and CN's II-XII intact bilaterally Psych mental status grossly normal Assessment & Plan Assessment/Plan (1) Obesity (BMI 30-39.9): (2) Excessive weight gain affecting : (3) Pre-eclampsia: (4) Vaginal delivery: PLAN: Plan PPD#1 , Doing well- IOL for preeclampsia w/o severe features Routine care pain mgmt ambulation monitor VS
[2022-09-24] MEDS: Acetaminophen 500 MG Tablet 1000 MG PO (10:00)
[2022-09-24] MEDS: Prenatal Vits Tablet 1 TABLET PO (11:54)
[2022-09-25 02:04] VITALS: BP 121/63; PULSE 93; RESP 16; TEMP 36.6
--- NOTE | 2022-09-25 08:21 | PN.OBGYN_ITS ---
Subjective Subjective Patient seen at bedside. Feeling good. Ambulating and voiding without difficulty. Lochia decreased. Denies any headache, vision changes, dizziness, RUQ pain, SOB or CP. Desires discharge home today. Objective Data Objective Data Vital Signs: Vital Signs Temp Pulse Resp BP Pulse Ox O2 Del Method 97.8 F 93 16 121/63 H 98 Room Air 09/25/22 02:04 09/25/22 02:04 09/25/22 02:04 09/25/22 02:04 09/24/22 16:00 09/25/22 02:04 Oxygen Delivery Method Room Air Weight: 265 lb Body Mass Index (BMI) 36.9 Intake & Output: Intake and Output for Last 24 Hours 09/23/22 09/24/22 09/25/22 23:59 23:59 23:59 Intake Total 3063.89 / 3063.89 Output Total 1300 / 1300 300 / 300 Balance 1763.89 / 1763.89 -300 / -300 Lab / Micro Data Result Diagrams: 09/24/22 06:10 09/23/22 07:35 ROS Eyes Eyes: Denies blurry vision, change in vision or spots in vision ENT HEENT: Denies dizziness or headache(s) Cardiovascular Cardiovascular: Denies abdominal pain, chest pain or dyspnea Respiratory/Chest Respiratory/Chest: Denies cough, dyspnea, shortness of breath at rest or shor tness of breath with exertion Gastrointestinal Gastrointestinal: Denies abdominal pain, diarrhea or vomiting Genitourinary Genitourinary: Denies change in urinary stream, difficulty urinating or dysuria Musculoskeletal Musculoskeletal: Reports none Integumentary Integumentary: Denies rash Neurologic Neurologic: Denies dizziness, headache(s), memory loss or weakness Physical Exam Const alert and no apparent distress General Appearance: cooperative and comfortable Exam Limitations: no limitations HEENT normocephalic Eyes General Eye: normal appearance of both eyes Neck full ROM General: normal visual inspection Chest Chest: symmetrical chest wall rise Resp normal respiratory effort and normal air movement Effort and Inspection: symmetric chest movement Auscultation: clear to auscultation bilaterally Cardio regular rate and regular rhythm GI normal to inspection, nondistended, normoactive bowel sounds Back/Spine normal ROM Extremity full ROM and no calf tenderness General Extremity: normal exam except as noted Skin no rashes or lesions noted Neuro CN's II-XII intact bilaterally Psych mental status grossly normal Assessment & Plan (1) Pre-eclampsia: (2) Vaginal delivery: (3) First degree perineal laceration: (4) Obesity (BMI 30-39.9): (5) Care and examination of lactating mother: PLAN: Plan PPD 2 BP stable Has BP cuff at home Preeclampsia precautions reviewed and when to call Lochia decreased without difficulty Denies any pain Desires d/c/ home with follow up in office
--- NOTE | 2022-09-25 08:24 | DCINST_ITS ---
Discharge Instructions Diet Discharge Diet: No restrictions Activity Discharge Activity: Return to Normal Activity, May Shower and May Take a Tub Bath May resume sexual activity in: 4-6 weeks Weight Bearing Status: Weight bearing as tolerated Dressing / Incision Call your doctor if you observe: Inability to urinate, Using more than 1 pad per hour, Shortness of breath, Dizziness, Swelling in the ankles, Chest pain, Calf discomfort and Uncontrolled pain Follow Up Care When: Within 10 days Test Results: Test results from this visit will be discussed in further detail at your follow- up appointment, if applicable. Discharge Plan Admission Admit Date/Time: 09/23/22 07:00 Primary Reason for Your Visit: Labor and Delivery Attending Provider: Zakiya Schulte Primary Care Provider: Care Physician,Maribel Primary Discharge Orders/Prescriptions Prescriptions: No Action vit,[id number] 1 TABLET tablet 1 tab PO DAILY famotidine [Pepcid] 20 mg Tablet 20 mg PO DAILY acetaminophen [Tylenol] 325 mg Capsule 650 mg PO Q6H PRN (Reason: Pain) Referrals / Follow Up: Care Physician,No Primary [Primary Care Provider] - Disposition Disposition (needs filled in before D/C Order can be placed): Home, Self Care
[2022-09-25 08:27] VITALS: BP 128/65; PULSE 82; RESP 16; TEMP 36.7; O2SAT 98
[2022-09-25 08:29] VITALS: BP 142/66; PULSE 82
[2022-09-25 08:32] VITALS: BP 128/65; PULSE 81
== END 2022-09-25 10:05 | disposition home or self-care (01) | DRG 807 ==
PROVIDERS: Admitting Provider Advanced Practice Midwife; Visit Provider Advanced Practice Midwife
DX: O14.04 Mild to moderate pre-eclampsia, complicating childbirth (principal); Z37.0 Single live birth; E66.9 Obesity, unspecified; O99.214 Obesity complicating childbirth; O70.0 First degree perineal laceration during delivery
CPT/HCPCS: 59025; 59050; 82565; 82570; 84156; 84450; 84460; 84550; 85025; 85027; 86780; 86850; 86900; 86901; 99221; J7030; J7120; A4216; G0378